=== PATIENT | male | born 2000 | race Caucasian/White ===

== ENCOUNTER 2018-01-07 10:09 | Emergency (ER) | payer OTHER ==
[2018-01-07] MEDS: IBUPROFEN 600 MG TAB PO (11:40)
== END 2018-01-07 12:49 | disposition home or self-care (01) ==
LOC: FTE 10:09
DX: S99.911A Unspecified injury of right ankle, initial encounter (principal); X50.1XXA Overexertion from prolonged static or awkward postures, initial encounter; Y92.89 Other specified places as the place of occurrence of the external cause
CPT/HCPCS: 73610; 73610-RT; 73630; 99283-25

== ENCOUNTER 2018-06-27 13:17 | Emergency (ER) | payer OTHER ==
[2018-06-27] MEDS: ACETAMINOPHEN 500 MG TAB PO (14:27)
== END 2018-06-27 16:37 | disposition home or self-care (01) ==
LOC: FTE 13:17
DX: R51 Headache (principal)
CPT/HCPCS: 70450; 99284-25